=== PATIENT | male | born 1995 | race Caucasian/White ===

== ENCOUNTER 2021-10-15 19:47 | Emergency (ER) | payer BC, SELFPAY ==
--- NOTE | 2021-10-15 19:52 | XR_ITS ---
PROCEDURE INFORMATION: Exam: XR Left Foot Exam date and time: 10/15/2021 7:50 PM Age: 25 years old Clinical indication: Injury or trauma; Other: Weight fell on foot; Blunt trauma; Toes; Left lesser toe(s); Additional info: Injury to 3-5 toes TECHNIQUE: Imaging protocol: XR Left foot. Views: 3 or more views. COMPARISON: No relevant prior studies available. FINDINGS: Soft tissue swelling around and osseous destruction of the distal phalanges of the 3rd and 4th toes could be posttraumatic or due to other underlying process such as osteomyelitis. Further workup is needed Otherwise the regional soft tissue and osseous structures are unremarkable. IMPRESSION: Soft tissue swelling around and osseous destruction of the distal phalanges of the 3rd and 4th toes could be posttraumatic or due to other underlying process such as osteomyelitis. Further workup is needed
[2021-10-15 20:05] VITALS: BP 132/98; PULSE 90; RESP 19; TEMP 36.6; O2SAT 98; BMI 38.0
--- NOTE | 2021-10-15 20:20 | HMH.EDUTC ---
[facility] [place] Condition on Discharge: Fair <Gema Milner E - Last Filed: 10/15/21 21:40> <Antnoio Reese - Last Filed: 10/15/21 22:12> Clinical Impression: Crush injury Toe fracture, left Qualifiers: Encounter type: initial encounter Toe: lesser toe Fracture type: open Phalanx: distal Fracture alignment: displaced Qualified Code(s): S92.532B - Displaced fracture of distal phalanx of left lesser toe(s), initial encounter for open fracture Disposition: Home, Self-Care Instructions: DI for Toe Fracture Additional Instructions: see pcp and ortho/pod jose keep clean and limited wt bearing and use meds as directed and be seen if any problems Prescriptions: cephALEXin [cephALEXin 500mg capsule*] 500 mg PO TID #30 cap Transmission Status: Pending to [facility] #[id number] Referrals: Provider,Referral, [Primary Care Provider] - Medical Decision Making - Jem Inquiry Pt receiving controlled substance: No Jem was queried for this patient: No <Gema Milner E - Last Filed: 10/15/21 21:40> - Radiology Data #1 Image(s): Foot/Toes Image Reviewed: Yes I have reviewed radiologist's interpretation Preliminary Findings: Abnormal - CT Data CT Scan: Other (foot) Time Received: 21:[address] Reviewed: Yes: I have viewed the radiologist's interpretation Preliminary Findings: Abnormal (see report ) - Physician Consults Physician Consulted: [place] Reason -: Pt condition <Antonio Reese - Last Filed: 10/15/21 22:12> Vital Signs: 10/15/21 20:05 10/15/21 20:24 Temperature 97.8 F 99.2 F Temperature Source Oral Oral Pulse Rate [Left] 90 89 Respiratory Rate 19 17 Blood Pressure [Right Arm] 132/98 H 130/89 Blood Pressure Mean [Right Arm] 109 102 Blood Pressure Source [Right Arm] Automatic Cuff Blood Pressure Position [Right Arm] Sitting 02 Sat by Pulse Oximetry 98 95 Oxygen Delivery Method Room Air Orders (Tests/Meds): ED MEDICATIONS Generic Name Dose Route Start Last Admin Trade Name Freq PRN Reason Stop Dose Admin Cefazolin Sodium 1 gm/ Sodium 50 mls @ 100 mls/hr 10/15/21 21:50 Chloride IV 10/15/21 22:19 ONCE ONE Medical Decision Narrative: Due to crush injury to third and fourth toe on left foot patient to be moved to the ED for further work up and treatment, Spoke with [facility] and patient was moved to room 1 (Gema Milner) crush injury with nail injury and fx noted - will place on abx and send pain meds and see pcp and ortho or podiatry jose (Antonio Reese) [facility] [place] HPI - General Mode of Arrival: Wheelchair Source of Information: Patient Limitations: No Limitations Description of Symptoms (Recalled from Triage Doc. by RN): pt presents with a crush injury to his L 3rd and 4th toes. pt was lifting weights and dropped them on his foot. pts toes are purple pedal pulse 3+ HEENT Symptoms (Recalled from RN notes): No Resp Symptoms (Recalled from RN notes): No Skin Symptoms (Recalled from RN notes): No MS Symptoms (Recalled from RN notes): Yes Functional Status (Recalled from RN notes): wnl - History of Present Illness Provider Complaint: Patient states that he was squating weights when he dropped the bar with about 200lbs of weight on his left foot States that the weight landed on his 3rd and 4th toe States that he looked down and noticed that the nail on his 3rd toe looked like it was hanging off States that he knew it was hurt bad so he came in - Worker's Comp Is this a Worker's Comp case?: No <Gema Milner - Last Filed: 10/15/21 21:40> - General Source of Information: Medical Record - History of Present Illness Onset (ago): hour(s) Severity: moderate Associated symptoms: denies other symptoms Treatments prior to arrival: none <Antonio Reese - Last Filed: 10/15/21 22:12> - General Stated complaint: [id number] Left toe injury Time Seen by Provider: 10/15/21 20:10 - Related Data Previous Rx's Medication Instructions Recorded cephALEXin
--- NOTE | 2021-10-15 20:22 | PC.NURSE ---
Pt arrived to ED from [facility]
[2021-10-15 20:24] VITALS: BP 130/89; PULSE 89; RESP 17; TEMP 37.3; O2SAT 95; BMI 38.0
--- NOTE | 2021-10-15 20:32 | CT_ITS ---
PROCEDURE INFORMATION: Exam: CT Left Lower Extremity Without Contrast, Foot Exam date and time: 10/15/2021 8:37 PM Age: 25 years old Clinical indication: Injury or trauma; Other: Weight fell on foot; Blunt trauma; Toes; Left lesser toe(s); Additional info: Crush injury TECHNIQUE: Imaging protocol: CT of the Left lower extremity without contrast was performed. Exam focused on the foot. 3D rendering (Not supervised by radiologist): MIP and/or 3D reconstructed images were created by the technologist. Radiation optimization: All CT scans at this facility use at least one of these dose optimization techniques: automated exposure control; mA and/or kV adjustment per patient size (includes targeted exams where dose is matched to clinical indication); or iterative reconstruction. COMPARISON: CR XR FOOT LT MIN 3V 10/15/2021 7:50 PM FINDINGS: Soft tissue swelling around and osseous destruction of the distal phalanges of the 3rd and 4th toes could be posttraumatic or due to other underlying process such as osteomyelitis. There are air bubbles within these regions of osseous destruction of the distal phalanges of the 3rd and 4th toes. Although these findings could be posttraumatic, and likely are, the possibility of infectious osteomyelitis should be excluded. Otherwise the regional soft tissue and osseous structures are unremarkable. IMPRESSION: Soft tissue swelling around and osseous destruction of the distal phalanges of the 3rd and 4th toes could be posttraumatic or due to other underlying process such as osteomyelitis. There are air bubbles within these regions of osseous destruction of the distal phalanges of the 3rd and 4th toes. Although these findings could be posttraumatic, and likely are, the possibility of infectious osteomyelitis should be excluded.
--- NOTE | 2021-10-15 20:35 | PC.NURSE ---
Pt gone to RAD
--- NOTE | 2021-10-15 20:44 | PC.NURSE ---
Pt back from RAD
[2021-10-15 22:12] VITALS: BP 130/79; PULSE 89; RESP 16; TEMP 37.3; O2SAT 95
== END 2021-10-15 22:31 | disposition home or self-care (01) ==
LOC: UTC 19:59 → ER 20:19
PROVIDERS: Emergency Provider Emergency Medicine
DX: S92.532A Displaced fracture of distal phalanx of left lesser toe(s), initial encounter for closed fracture (principal); S91.312A Laceration without foreign body, left foot, initial encounter; Z79.1 Long term (current) use of non-steroidal anti-inflammatories (NSAID); Z79.899 Other long term (current) drug therapy; W23.0XXA Caught, crushed, jammed, or pinched between moving objects, initial encounter
CPT/HCPCS: 12001; 73630; 73700; 96374; 99285